=== PATIENT | male | born 1950 | race Caucasian/White ===

== ENCOUNTER 2017-03-16 13:22 | Emergency (ER) | payer OTHER ==
[2017-03-16 16:06] VITALS: BP 132/70
--- NOTE | 2017-03-16 16:15 | UC ---
Romie Velez Benjamin, scribed for Ann Morris MD on 03/16/17 at 1558 . Skin Complaint HPI - HPI Summary HPI Summary: 66yo male comes to with red rash with blisters for 4 days on his left arm and right leg. Pt also had poison zarina 2-3 weeks ago. Pt also reports that his granddaughter who had rash was dxed with staph infection (possible MRSA and she is on Bactrim) on 03/14/17. Pt has been applying topical steroid cream he was rxed from his previous poison zarina but states that isnt helping. Pt doesn t think he was re-exposed to poison zarina, but he isnt 100% sure. Pt's son has hx of MRSA. - History of Current Complaint Chief Complaint: Ras Time Seen by Provider: 03/16/17 15:43 Stated Complaint: RASH Hx Obtained From: Patient Onset/Duration: Gradual Onset, Lasting Days - 4 days, Still Present Skin Exposure Onset/Duration: Days Ago Timing: Constant Onset Severity: Mild Current Severity: Moderate Pain Intensity: 0 Pain Scale Used: 0-10 Numeric Location: Other - left arm, right leg, abdomen Character: Pruritus, Redness, Raised Aggravating: Nothing Alleviating: Nothing Associated Signs & Symptoms: Positive: Rash. Negative: Fever, Red Streaks Related History: Possible Reaction to: Environmental Exposure - Allergy/Home Medications Allergies/Adverse Reactions: Allergies Allergy/AdvReac Type Severity Reaction Status Date / Time No Known Allergies Allergy Verified 03/16/17 14:07 Home Medications: Home Medications Aspirin [Aspirin 81 MG TAB] 81 mg PO DAILY 03/16/17 [History Confirmed 03/16/17] Review of Systems Constitutional: Negative Skin: Rash - red rash with blisters on left arm and right leg and abdomen . Eyes: Negative ENT: Negative Respiratory: Negative Cardiovascular: Negative Gastrointestinal: Negative Genitourinary: Negative Motor: Negative Neurovascular: Negative Musculoskeletal: Negative Neurological: Negative Psychological: Negative All Other Systems Reviewed And Are Negative: Yes PMH/Surg Hx/FS Hx/Imm Hx Previously Healthy: Yes - denies PMHx - Surgical History Surgical History: Yes Surgery Procedure, Year, and Place: thumb surgery. - Family History Known Family History: Positive: Diabetes, Renal Disease - kidney failure in sister, Other - prostate CA in father - Social History Occupation: Employed Full-time Lives: With Family Alcohol Use: Occasionally Substance Use Type: Marijuana Smoking Status (MU): Never Smoked Tobacco Physical Exam Triage Information Reviewed: Yes Appearance: Well-Appearing, No Pain Distress, Well-Nourished Vital Signs: Initial Vital Signs Temp 97.7 F 03/16/17 14:04 Pulse 68 03/16/17 14:04 Resp 18 03/16/17 14:04 BP 118/77 03/16/17 14:04 Pulse Ox 100 03/16/17 14:04 Vital Signs Reviewed: Yes Eyes: Positive: Conjunctiva Clear ENT: Positive: Hearing grossly normal. Negative: Muffled/hoarse voice Neck: Positive: Supple, Nontender Respiratory: Positive: Lungs clear, Normal breath sounds, No respiratory distress, No accessory muscle use Cardiovascular: Positive: RRR, No Murmur, Pulses Normal Abdomen Description: Positive: Nontender, No Organomegaly, Soft. Negative: Distended, Guarding Bowel Sounds: Positive: Present Musculoskeletal: Positive: Strength Intact, ROM Intact Neurological: Positive: Alert, Muscle Tone Normal Psychological: Positive: Age Appropriate Behavior Skin: Positive: rashes - Left arm maculopapular erythematous lesion with clear intact vesicles; LLQ abdomen with clusters of maculopapular erythematous lesion with vesicles; RLE multiple maculopapular erythematous lesions with excoriation and surrounding redness; no red streaks Course/Dx - Course Course Of Treatment: Reviewed pt's medications list and allergies. - Differential Diagnoses - Skin Complaint Differential Diagnoses: Allergic Reaction, Contact Dermatitis, Drug Rash, Poison Zarina - Diagnoses Provider Diagnoses: Poison zarina with secondary infection. Discharge - Discharge Plan Condition: Stable Disposition: HOME Prescriptions: Cephalexin CAP* [Keflex 500 CAP*] 500 mg PO QID #40 cap Methylprednisolone [Medrol Dosepak 4 MG*] 4 mg PO .SEE BRENDA INSTRUCTION #1 brenda Sulfamethox/Trimethoprim DS* [Bactrim DS 800/160 TAB*] 1 tab PO BID #20 tab Patient Education Materials: MRSA (Methicillin-Resistant Staphylococcus Aureus ) (ED), Poison Zarina (ED) Additional Instructions: Dr. Morris does not feel that you have a MRSA (resistant staph) infection at this time, but with it in your family and the open sores you have from poison zarina and the high risk of this infection, she is going to cover you with antibiotics that would treat routine staph and MRSA. She is also giving you a Medrol dosepak to help control the immune reaction to the poison zarina. Be sure to take the steroids exactly as directed. Return to urgent care if you have any new or worsening symptoms. The documentation as recorded by the Romie trinh Benjamin accurately reflects the service I personally performed and the decisions made by me, Ann Morris MD.
== END 2017-03-16 16:15 | disposition home or self-care (01) ==
LOC: UCEAST 13:22
DX: L23.7 Allergic contact dermatitis due to plants, except food (principal); L08.9 Local infection of the skin and subcutaneous tissue, unspecified
CPT/HCPCS: 99202; G0463